=== PATIENT | male | born 1950 | race Caucasian/White ===

== ENCOUNTER → 2018-01-01 | Outpatient (CLI) | payer MEDICARE ==
[~2018-01-01] MED LIST: Aspir 8181 MG PO; FLAX PO; Fish Oil300 MG PO; Multiple Vitam1 EAC1 PO
== END ==
LOC: PLD 07:22 → LAB SHORT 07:22
DX: D04.4 Carcinoma in situ of skin of scalp and neck (principal)
CPT/HCPCS: 88305

== ENCOUNTER → 2020-11-21 | Outpatient (CLI) | payer MEDICARE | END | disposition home or self-care (01) | LOC: LAB SHORT 14:43 → PLD 14:43 | DX: L30.8 Other specified dermatitis (principal) | CPT/HCPCS: 88305; 88313 ==

== ENCOUNTER 2021-05-18 01:44 | Emergency (ER) | payer MEDICARE ==
[~2021-05-18] VITALS: Ht 177.8 cm; Wt 78.5 kg
[2021-05-18] MEDS ORDERED: Cyclobenzaprine5 MG PO (04:27)
== END 2021-05-18 05:27 | disposition home or self-care (01) ==
LOC: ER 01:44
DX: M54.5 Low back pain (principal); Z88.5 Allergy status to narcotic agent
CPT/HCPCS: 96374; 99284-25; A9270; J3360